=== PATIENT | female | born 1960 | race African-American/Black ===

== ENCOUNTER 2017-05-01 13:20 | Inpatient (IN) | payer MEDICAID, OTHER ==
[~2017-05-01] VITALS: Ht 154.9 cm; Wt 100.7 kg
[2017-05-01] MEDS ORDERED: ONDANSETRON 4 MG/2 ML VIAL IV ONE (14:30)
[2017-05-01] MEDS ORDERED: IV NORMAL SALINE 1000 ML BAG IV ONE ×2 (14:30→15:15)
[2017-05-01 14:48] LABS: BASOPHILS # (AUTO) 0.3 K/uL (0.0-8.0); BASOPHILS % (AUTO) 3.8 % (0.0-2.0); EOSINOPHILS # (AUTO) 0.3 K/uL (0.0-0.7); EOSINOPHILS % (AUTO) 3.6 % (0.0-7.0); HEMATOCRIT 42.8 % (37-47); HEMOGLOBIN 13.6 G/DL (12.0-16.0); LYMPHOCYTES # (AUTO) 1.7 K/UL (0.8-4.8); MEAN CORPUSCULAR HEMOGLOBIN 27.4 UUG (27.0-31.0); MEAN CORPUSCULAR HGB CONC 32 g/dL (32.0-37.0); MEAN CORPUSCULAR VOLUME 85.9 FL (81.0-99.0); MONOCYTES # (AUTO) 0.7 K/UL (0.1-1.30); MONOCYTES % (AUTO) 9.1 % (0.0-11.0); NEUTROPHILS # (AUTO) 4.9 K/UL (1.8-8.9); NEUTROPHILS % (AUTO) 62.5 % (38.5-71.5); PLATELET COUNT (AUTO) 200 K/UL (150-450); RED BLOOD CELL COUNT(AUTO) 4.98 MIL/UL (4.2-5.4); WHITE BLOOD COUNT (AUTO) 7.9 K/UL (4.0-11.2)
[2017-05-01 15:02] LABS: BILIRUBIN,DIRECT 0.1 mg/dL (0.0-0.2); BILIRUBIN,TOTAL 0.6 mg/dL (0.2-1.0); CREATININE 1.1 mg/dL (0.6-1.3); POTASSIUM 4.5 mmol/L (3.5-5.1); TOTAL PROTEIN, SERUM 8.6 g/dL (6.4-8.2)
[2017-05-01] MEDS ORDERED: ONDANSETRON 4 MG/2 ML VIAL ONE (15:12)
[2017-05-01] MEDS ORDERED: INSULIN REGULAR, HUMAN 100 UNIT in IV NORMAL SALINE 99 ML IV PRN ×2 (17:30)
[2017-05-01 18:20] LABS: *BILIRUBIN,URIN NEGATIVE (NEGATIVE); *BLOOD, URINE 3+ (NEGATIVE); *CLARITY,URINE SLIGHTLY CLOUDY (CLEAR); *COLOR,URINE YELLOW (YELLOW); *KETONES,URINE 2+ (NEGATIVE); *PROTEIN,URINE 1+ (NEGATIVE); *UROBILINOGEN,URINE 0.2 E.U./dl (NORMAL); LEUKOCYTE ESTERASE ,URINE TRACE (NEGATIVE); NITRITE, URINE NEGATIVE (NEGATIVE)
[2017-05-01 18:22] LABS: UGLUCOSE 3+ (NEGATIVE)
[2017-05-01 18:26] LABS: BACTERIA,URINE FEW /HPF (NONE SEEN); RBC,URINE 50-80 /HPF (0-3); SQUAMOUS EPITHELIAL CELL,UR FEW /HPF (NONE SEEN)
[2017-05-01] MEDS ORDERED: INSULIN REGULAR, HUMAN 1,000 UNITS/10 ML VIAL IV ONE (18:45)
[2017-05-01] MEDS ORDERED: INSULIN REGULAR, HUMAN 300 UNIT/3 ML VIAL ONE (18:49)
[2017-05-01] MEDS ORDERED: DEXTROSE 50% 50 ML DISP.SYRIN IV PRN (19:30)
[2017-05-01] MEDS ORDERED: ACETAMINOPHEN 325 MG TABLET PO PRN (19:30)
[2017-05-01] MEDS ORDERED: ONDANSETRON 4 MG/2 ML VIAL IV PRN (19:30)
[2017-05-01] MEDS ORDERED: HYDROCODONE/APAP 5-325MG TABLET PO PRN (19:30)
[2017-05-01] MEDS ORDERED: MAGNESIUM HYDROXIDE 30 ML LIQUID UDC PO PRN (19:30)
[2017-05-01] MEDS ORDERED: MORPHINE SULFATE 2 MG/1 ML DISP.SYRIN IV PRN (19:30)
[2017-05-01] MEDS ORDERED: METFORMIN HCL 500 MG TABLET PO SCH (19:30)
[2017-05-01] MEDS: IV 1/2NS 1000 ML 1,000 ML IV PRN (20:11)
[2017-05-01] MEDS: glipiZIDE 5 MG TABLET PO SCH (20:12)
[2017-05-01] MEDS ORDERED: glipiZIDE 5 MG TABLET ONE (20:16)
[2017-05-01] MEDS ORDERED: METFORMIN HCL 500 MG TABLET ONE (20:16)
[2017-05-01] MEDS ORDERED: DOCUSATE SODIUM 100 MG CAPSULE PO ONE (20:17)
[2017-05-01] MEDS ORDERED: ACETAMINOPHEN 325 MG TABLET ONE (20:17)
[2017-05-01 20:18] VITALS: BP 125/77
[2017-05-01] MEDS ORDERED: DOCUSATE SODIUM 250 MG CAPSULE PO SCH (21:00)
[2017-05-01] MEDS: BLOOD SUGAR DIAGNOSTIC 1 EACH STRIP VI SCH (21:03)
[2017-05-01] MEDS: INSULIN REGULAR, HUMAN 300 UNITS/3 ML VIAL SQ PRN (21:10)
[2017-05-02] VITALS: BP 123/73
[2017-05-02 04:00] VITALS: BP 118/67
[2017-05-02] MEDS: INSULIN REGULAR, HUMAN 300 UNIT/3 ML VIAL SQ PRN ×3 (05:45→16:48)
[2017-05-02] MEDS: BLOOD SUGAR DIAGNOSTIC 1 EACH STRIP VI SCH ×4 (06:30→20:58)
[2017-05-02 06:39] LABS: BASOPHILS # (AUTO) 0.1 K/uL (0.0-8.0); BASOPHILS % (AUTO) 1.3 % (0.0-2.0); EOSINOPHILS # (AUTO) 0.4 K/uL (0.0-0.7); EOSINOPHILS % (AUTO) 5.8 % (0.0-7.0); HEMATOCRIT 37.6 % (37-47); HEMOGLOBIN 12.1 G/DL (12.0-16.0); LYMPHOCYTES # (AUTO) 2.3 K/UL (0.8-4.8); LYMPHOCYTES % (AUTO) 32.1 % (20.5-51.5); MEAN CORPUSCULAR HEMOGLOBIN 27.6 UUG (27.0-31.0); MEAN CORPUSCULAR HGB CONC 32 g/dL (32.0-37.0); MEAN CORPUSCULAR VOLUME 85.7 FL (81.0-99.0); MONOCYTES # (AUTO) 0.6 K/UL (0.1-1.30); MONOCYTES % (AUTO) 8.7 % (0.0-11.0); NEUTROPHILS # (AUTO) 3.9 K/UL (1.8-8.9); NEUTROPHILS % (AUTO) 52.1 % (38.5-71.5); PLATELET COUNT (AUTO) 196 K/UL (150-450); RED BLOOD CELL COUNT(AUTO) 4.39 MIL/UL (4.2-5.4); WHITE BLOOD COUNT (AUTO) 7.3 K/UL (4.0-11.2)
[2017-05-02 07:01] LABS: BILIRUBIN,TOTAL 0.3 mg/dL (0.2-1.0); CREATININE 0.7 mg/dL (0.6-1.3); MAGNESIUM 1.9 mg/dL (1.8-2.4); PHOSPHOROUS 3.6 mg/dL (2.5-4.9); POTASSIUM 3.9 mmol/L (3.5-5.1); TOTAL PROTEIN, SERUM 7.1 g/dL (6.4-8.2)
[2017-05-02 08:42] LABS: THYROID STIMULATING HORMONE 1.937 mIU/mL (0.358-3.740)
[2017-05-02] MEDS ORDERED: LISINOPRIL 10 MG TABLET PO SCH (09:00)
[2017-05-02] MEDS: METFORMIN HCL 500 MG TABLET PO SCH ×2 (09:44→18:58)
[2017-05-02] MEDS: PANTOPRAZOLE SODIUM 40 MG TABLET.DR PO SCH (09:44)
[2017-05-02] MEDS: glipiZIDE 5 MG TABLET PO SCH ×2 (09:44→16:41)
[2017-05-02] MEDS: LISINOPRIL 5 MG TABLET PO SCH (09:45)
[2017-05-02] MEDS: IV 1/2NS 1000 ML 1,000 ML IV PRN (10:04)
[2017-05-02] MEDS ORDERED: glipiZIDE 5 MG TABLET PO ONE (11:15)
[2017-05-02 11:42] VITALS: BP 113/76
[2017-05-02 15:58] VITALS: BP 91/52
[2017-05-02 20:19] VITALS: BP 92/57
[2017-05-02] MEDS ORDERED: SIMVASTATIN 10 MG TABLET PO SCH (21:00)
[2017-05-02] MEDS ORDERED: DOCUSATE SODIUM 100 MG CAPSULE PO SCH (21:00)
[2017-05-02] MEDS: INSULIN REGULAR, HUMAN 300 UNITS/3 ML VIAL SQ PRN (23:07)
[2017-05-03 05:02] VITALS: BP 111/66
[2017-05-03] MEDS: IV 1/2NS 1000 ML 1,000 ML IV PRN (05:11)
[2017-05-03] MEDS: PANTOPRAZOLE SODIUM 40 MG TABLET.DR PO SCH (06:52)
[2017-05-03] MEDS: BLOOD SUGAR DIAGNOSTIC 1 EACH STRIP VI SCH ×3 (06:53→16:49)
[2017-05-03] MEDS ORDERED: CEFTRIAXONE 1 G in IV DEXTROSE 5% 50 ML IV SCH (08:15)
[2017-05-03] MEDS: INSULIN REGULAR, HUMAN 300 UNIT/3 ML VIAL SQ PRN ×3 (08:36→16:51)
[2017-05-03] MEDS: glipiZIDE 5 MG TABLET PO SCH ×2 (08:37→16:49)
[2017-05-03] MEDS: METFORMIN HCL 500 MG TABLET PO SCH ×2 (08:37→18:42)
[2017-05-03] MEDS ORDERED: SITAGLIPTIN PHOSPHATE 50 MG TABLET PO SCH (09:00)
[2017-05-03] MEDS: LISINOPRIL 5 MG TABLET PO SCH (09:00)
[2017-05-03] MEDS ORDERED: LINAGLIPTIN 5 MG TABLET PO SCH (09:00)
[2017-05-03] MEDS ORDERED: CEFTRIAXONE 2 G in IV DEXTROSE 5% 100 ML IV SCH (09:45)
[2017-05-03 11:57] VITALS: BP 108/62
[2017-05-03 16:13] VITALS: BP 94/57
== END 2017-05-03 18:52 | disposition home or self-care (01) | DRG 420 ==
LOC: ER 13:23 → TELE 19:51 → MED 05-02 18:00
PROVIDERS: ADMIT Internal Medicine; ATTEND Internal Medicine
DX: E11.65 Type 2 diabetes mellitus with hyperglycemia (principal); D68.59 Other primary thrombophilia; Z68.41 Body mass index [BMI] 40.0-44.9, adult; E66.01 Morbid (severe) obesity due to excess calories; N39.0 Urinary tract infection, site not specified; Z71.3 Dietary counseling and surveillance; Z87.891 Personal history of nicotine dependence; M54.30 Sciatica, unspecified side; G89.29 Other chronic pain; E78.5 Hyperlipidemia, unspecified; Z74.09 Other reduced mobility
CPT/HCPCS: 36415; 71010; 83690; 83735; 84100; 84443; 85025; 93005; A4663; J0696; J1815; J2405; J3490; J7030; J7060

== ENCOUNTER 2017-06-02 12:45 | Emergency (ER) | payer MEDICAID ==
[~2017-06-02] VITALS: Ht 154.9 cm; Wt 74.8 kg
--- NOTE | 2017-06-02 13:47 | NUR ---
Patient discharged to home in stable conditon. Written and verbal after care instructions given. Patient verbalizes understanding of instructions.
== END 2017-06-02 13:48 | disposition home or self-care (01) ==
LOC: ER 12:45
DX: Z76.0 Encounter for issue of repeat prescription (principal); J45.909 Unspecified asthma, uncomplicated; Z86.73 Personal history of transient ischemic attack (TIA), and cerebral infarction without residual deficits; Z88.1 Allergy status to other antibiotic agents; E11.9 Type 2 diabetes mellitus without complications
CPT/HCPCS: 82962; 99282; A4663

== ENCOUNTER 2018-12-18 09:03 | Emergency (ER) | payer OTHER ==
[~2018-12-18] VITALS: Ht 154.9 cm; Wt 72.6 kg
[2018-12-18] MEDS ORDERED: IBUPROFEN 800 MG TABLET PO ONE (09:45)
[2018-12-18] MEDS ORDERED: IBUPROFEN 800 MG TABLET ONE (09:52)
[2018-12-18 10:23] LABS: *BILIRUBIN,URIN NEGATIVE (NEGATIVE); *BLOOD, URINE NEGATIVE (NEGATIVE); *CLARITY,URINE CLEAR (CLEAR); *COLOR,URINE YELLOW (YELLOW); *KETONES,URINE NEGATIVE (NEGATIVE); *UROBILINOGEN,URINE 0.2 E.U./dl (NORMAL); LEUKOCYTE ESTERASE ,URINE NEGATIVE (NEGATIVE); NITRITE, URINE NEGATIVE (NEGATIVE); UGLUCOSE NEGATIVE (NEGATIVE)
[2018-12-18 10:28] LABS: BACTERIA,URINE FEW /HPF (NONE SEEN); RBC,URINE 0-3 /HPF (0-3); SQUAMOUS EPITHELIAL CELL,UR FEW /HPF (NONE SEEN); WBC,URINE 0-3 /HPF (0-3)
[2018-12-18 11:45] LABS: CREATININE 0.7 mg/dL (0.6-1.3); POTASSIUM 3.8 mmol/L (3.5-5.1)
[2018-12-18 11:51] LABS: BILIRUBIN,DIRECT 0.1 mg/dL (0.0-0.2); BILIRUBIN,TOTAL 0.2 mg/dL (0.2-1.0); TOTAL PROTEIN, SERUM 8.3 g/dL (6.4-8.2)
--- NOTE | 2018-12-18 11:56 | NUR ---
[facility] PROVIDED FOR PT PER PT REQUEST AND MD DELGADO.
[2018-12-18 12:19] LABS: BASOPHILS % (AUTO) 0.6 % (0.0-2.0); EOSINOPHILS # (AUTO) 0.4 K/uL (0.0-0.7); EOSINOPHILS % (AUTO) 5.1 % (0.0-7.0); HEMATOCRIT 36.3 % (31.2-41.9); LYMPHOCYTES # (AUTO) 2.1 K/uL (20.0-40.0); LYMPHOCYTES % (AUTO) 29.7 % (20.5-51.5); MEAN CORPUSCULAR HEMOGLOBIN 28.1 uug (24.7-32.8); MEAN CORPUSCULAR HGB CONC 33 g/dL (32.3-35.6); MEAN CORPUSCULAR VOLUME 84.8 fL (75.5-95.3); MONOCYTES # (AUTO) 0.7 K/uL (2.0-10.0); MONOCYTES % (AUTO) 9.5 % (0.0-11.0); NEUTROPHILS # (AUTO) 3.9 K/uL (1.8-8.9); NEUTROPHILS % (AUTO) 55.1 % (38.5-71.5); PLATELET COUNT (AUTO) 192 K/uL (179-408); RED BLOOD CELL COUNT(AUTO) 4.28 MIL/uL (3.63-4.92)
--- NOTE | 2018-12-18 12:38 | NUR ---
Patient discharged to home in stable conditon. Written and verbal after care instructions given. Patient verbalizes understanding of instructions.PT WALKS INSTEADY GAIT. PAIN DOWN TO TOLERABLE LEVEL.
[2018-12-18 12:39] VITALS: BP 109/81
== END 2018-12-18 12:40 | disposition home or self-care (01) ==
LOC: ER 09:03
DX: S70.01XA Contusion of right hip, initial encounter (principal); S20.211A Contusion of right front wall of thorax, initial encounter; S70.11XA Contusion of right thigh, initial encounter; M54.2 Cervicalgia; R10.9 Unspecified abdominal pain; R93.1 Abnormal findings on diagnostic imaging of heart and coronary circulation; J98.11 Atelectasis; K57.30 Diverticulosis of large intestine without perforation or abscess without bleeding; N85.2 Hypertrophy of uterus; J45.909 Unspecified asthma, uncomplicated; E66.9 Obesity, unspecified; Z86.73 Personal history of transient ischemic attack (TIA), and cerebral infarction without residual deficits; Z88.8 Allergy status to other drugs, medicaments and biological substances; V03.90XA Pedestrian on foot injured in collision with car, pick-up truck or van, unspecified whether traffic or nontraffic accident, initial encounter; Y93.01 Activity, walking, marching and hiking; Y92.89 Other specified places as the place of occurrence of the external cause; Y99.8 Other external cause status
CPT/HCPCS: 36415; 70030-TC; 71250; 72125; 85025; 85730; 93005; A4663

== ENCOUNTER 2019-06-05 19:08 | Emergency (ER) | payer OTHER ==
[~2019-06-05] VITALS: Ht 154.9 cm; Wt 72.6 kg
--- NOTE | 2019-06-05 19:20 | NUR ---
Patient ambulated with stable gait. Speech clear, speaks in complete sentences. Patient came for c/o dizziness. Respiratory even and unlabored, no cough no sob. Denies any n/v/d
--- NOTE | 2019-06-05 19:28 | NUR ---
ERMD at bedside for MSE
[2019-06-05] MEDS ORDERED: METF500T7 PO (19:29)
[2019-06-05] MEDS ORDERED: INSU100C SQ (19:29)
[2019-06-05] MEDS ORDERED: SERT25TA PO (19:29)
[2019-06-05] MEDS ORDERED: MECLIZINE HCL 25 MG TABLET ONE (19:45)
[2019-06-05] MEDS ORDERED: MECLIZINE HCL 25 MG TABLET PO ONE (19:45)
[2019-06-05 19:52] LABS: BASOPHILS # (AUTO) 0.1 K/uL (0.0-8.0); BASOPHILS % (AUTO) 1.1 % (0.0-2.0); EOSINOPHILS # (AUTO) 0.3 K/uL (0.0-0.7); EOSINOPHILS % (AUTO) 3.6 % (0.0-7.0); HEMATOCRIT 38.6 % (31.2-41.9); HEMOGLOBIN 12.6 g/dL (10.9-14.3); LYMPHOCYTES % (AUTO) 27.9 % (20.5-51.5); MEAN CORPUSCULAR HEMOGLOBIN 27.9 uug (24.7-32.8); MEAN CORPUSCULAR HGB CONC 33 g/dL (32.3-35.6); MEAN CORPUSCULAR VOLUME 85.3 fL (75.5-95.3); MONOCYTES # (AUTO) 0.5 K/uL (2.0-10.0); MONOCYTES % (AUTO) 7.8 % (0.0-11.0); NEUTROPHILS # (AUTO) 4.2 K/uL (1.8-8.9); NEUTROPHILS % (AUTO) 59.6 % (38.5-71.5); PLATELET COUNT (AUTO) 164 K/uL (179-408); RED BLOOD CELL COUNT(AUTO) 4.53 MIL/uL (3.63-4.92)
[2019-06-05 20:04] LABS: CREATININE 1.2 mg/dL (0.6-1.3); POTASSIUM 4.6 mmol/L (3.5-5.1)
[2019-06-05] MEDS ORDERED: IV NORMAL SALINE 1000 ML BAG IV ONE ×2 (20:30→22:45)
[2019-06-05] MEDS ORDERED: POTASSIUM CHLORIDE 20 MEQ TAB.PRT.SR PO ONE (20:30)
[2019-06-05] MEDS ORDERED: INSULIN REGULAR, HUMAN 300 UNIT/3 ML VIAL IV ONE ×2 (20:30→22:45)
[2019-06-05] MEDS ORDERED: POTASSIUM CHLORIDE 20 MEQ TAB.PRT.SR ONE (20:33)
[2019-06-05] MEDS ORDERED: INSULIN REGULAR, HUMAN 300 UNIT/3 ML VIAL ONE ×2 (20:33→23:01)
--- NOTE | 2019-06-05 21:30 | NUR ---
1st liter NaCL 0.9% IV infusion completed at 2130
--- NOTE | 2019-06-06 00:20 | NUR ---
2nd liter Normal Saline 0.9% infusion completed at 0020
--- NOTE | 2019-06-06 00:57 | NUR ---
Patient discharged to home in stable conditon. Written and verbal after care instructions given. Patient verbalizes understanding of instructions. Patient ambulated with stable gait.
[2019-06-06 01:02] VITALS: BP 132/89
== END 2019-06-06 01:03 | disposition home or self-care (01) ==
LOC: ER 19:09
DX: E10.65 Type 1 diabetes mellitus with hyperglycemia (principal); R42 Dizziness and giddiness; J45.909 Unspecified asthma, uncomplicated; Z88.8 Allergy status to other drugs, medicaments and biological substances; Z86.73 Personal history of transient ischemic attack (TIA), and cerebral infarction without residual deficits; Z79.4 Long term (current) use of insulin; Z79.899 Other long term (current) drug therapy
CPT/HCPCS: 36415; 80048; 82962 ×3; 85025; 93005; 96361 ×2; 96374; 96376; 99284; J1815 ×2; A4663; J7030; J8597

== ENCOUNTER 2019-06-12 17:04 | Emergency (ER) | payer OTHER ==
[~2019-06-12] VITALS: Ht 154.9 cm; Wt 72.6 kg
[~2019-06-12 17:04] MED LIST: INSU100C SQ; METF500T7 PO; SERT25TA PO
--- NOTE | 2019-06-12 17:25 | NUR ---
BRADLEY DAWSON AT BEDSIDE FOR MSE.
[2019-06-12] MEDS ORDERED: IV NORMAL SALINE 1000 ML BAG IV ONE (17:30)
[2019-06-12 17:33] LABS: BASOPHILS % (AUTO) 0.3 % (0.0-2.0); EOSINOPHILS # (AUTO) 0.3 K/uL (0.0-0.7); EOSINOPHILS % (AUTO) 4.7 % (0.0-7.0); HEMATOCRIT 38.6 % (31.2-41.9); HEMOGLOBIN 12.6 g/dL (10.9-14.3); LYMPHOCYTES # (AUTO) 2.2 K/uL (20.0-40.0); LYMPHOCYTES % (AUTO) 30.7 % (20.5-51.5); MEAN CORPUSCULAR HEMOGLOBIN 27.5 uug (24.7-32.8); MEAN CORPUSCULAR HGB CONC 33 g/dL (32.3-35.6); MEAN CORPUSCULAR VOLUME 84.3 fL (75.5-95.3); MONOCYTES # (AUTO) 0.6 K/uL (2.0-10.0); NEUTROPHILS # (AUTO) 4.1 K/uL (1.8-8.9); NEUTROPHILS % (AUTO) 56.3 % (38.5-71.5); PLATELET COUNT (AUTO) 189 K/uL (179-408); RED BLOOD CELL COUNT(AUTO) 4.58 MIL/uL (3.63-4.92); WHITE BLOOD COUNT (AUTO) 7.3 K/uL (3.8-11.8)
[2019-06-12 17:46] LABS: BILIRUBIN,DIRECT 0.1 mg/dL (0.0-0.2); BILIRUBIN,TOTAL 0.4 mg/dL (0.2-1.0); CREATININE 0.9 mg/dL (0.6-1.3)
[2019-06-12 18:15] LABS: *BILIRUBIN,URIN NEGATIVE (NEGATIVE); *BLOOD, URINE NEGATIVE (NEGATIVE); *COLOR,URINE YELLOW (YELLOW); *KETONES,URINE NEGATIVE (NEGATIVE); *UROBILINOGEN,URINE 0.2 E.U./dl (NORMAL); LEUKOCYTE ESTERASE ,URINE NEGATIVE (NEGATIVE); NITRITE, URINE NEGATIVE (NEGATIVE)
[2019-06-12 18:19] LABS: *CLARITY,URINE HAZY (CLEAR); UGLUCOSE 3+ (NEGATIVE)
[2019-06-12 18:25] LABS: BACTERIA,URINE FEW /HPF (NONE SEEN); SQUAMOUS EPITHELIAL CELL,UR MODERATE /HPF (NONE SEEN); WBC,URINE 0-3 /HPF (0-3)
[2019-06-12] MEDS ORDERED: INSULIN REGULAR, HUMAN 300 UNIT/3 ML VIAL ONE (18:42)
[2019-06-12] MEDS ORDERED: ACETAMINOPHEN ES 500 MG TABLET ONE (18:42)
[2019-06-12] MEDS ORDERED: INSULIN REGULAR, HUMAN 300 UNIT/3 ML VIAL SQ ONE (18:45)
[2019-06-12] MEDS ORDERED: ACETAMINOPHEN ES 500 MG TABLET PO ONE (18:45)
--- NOTE | 2019-06-12 19:26 | NUR ---
Patient is refusing to leave the ER at this time. She states " I got blood on my skirt and now I dont feel good". Patient is refusing to follow instruction, she is refusing to leave the ER. Patient was assisted in cleaning her skirt by Troy Craven RN. She was instructed that there is not definitive means of cleaning her skirt in the ER. Her IV site was redressed. Patient spoke to the ER MD, Dr Moore and was instructed that she has been d/c from the ER by Dr Katz. Patient continued to refuse to leave the ER and security was contacted to assist with the situation. Patient became rude and uncooperative. Patient discharged to home in stable conditon. Written and verbal after care instructions given. Patient verbalizes understanding of instructions. Peripheral IV removed prior to d/c. All belongings with patient.
[2019-06-12 19:39] VITALS: BP 111/80
== END 2019-06-12 19:40 | disposition home or self-care (01) ==
LOC: ER 17:04
DX: E11.65 Type 2 diabetes mellitus with hyperglycemia (principal); J45.909 Unspecified asthma, uncomplicated; Z88.8 Allergy status to other drugs, medicaments and biological substances; Z79.4 Long term (current) use of insulin; Z79.899 Other long term (current) drug therapy
CPT/HCPCS: 36415; 80048; 80076; 81000; 81001; 82962; 83690; 85025; 96360; 96361; 96372; 99283; J1815; A4663; A9150; J7030

== ENCOUNTER 2019-06-28 11:21 | Emergency (ER) | payer OTHER ==
[~2019-06-28] VITALS: Ht 154.9 cm; Wt 72.6 kg
--- NOTE | 2019-06-28 11:43 | NUR ---
PATIENT WAS SEEN BY . KEVIN, RX (INCLUDING RECAUTIONS) AND FOLLOW UP INSTRUCTIONS GIVEN AND EXPLAINED TO PATIENT WHO STATES SHE UNDERSTANDS ALL INSTRUCTIONS.
== END 2019-06-28 11:45 | disposition home or self-care (01) ==
LOC: ER 11:21
DX: E11.9 Type 2 diabetes mellitus without complications (principal); J45.909 Unspecified asthma, uncomplicated; Z76.0 Encounter for issue of repeat prescription; Z86.73 Personal history of transient ischemic attack (TIA), and cerebral infarction without residual deficits; Z88.8 Allergy status to other drugs, medicaments and biological substances; Z79.4 Long term (current) use of insulin; Z79.899 Other long term (current) drug therapy
CPT/HCPCS: A4663

== ENCOUNTER 2019-07-18 12:44 | Emergency (ER) | payer OTHER ==
[~2019-07-18] VITALS: Ht 154.9 cm; Wt 72.6 kg
--- NOTE | 2019-07-18 12:50 | NUR ---
PT IS A/OX4, PRESENTS TO THE ER C/O DIZZINESS AND LLE WEAKNESS. 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 PT IS ABLE TO SELF-AMBULATE W/ USE OF CANE. PT IS OF CLEAR SPEECH, NO FACIAL DROOP, NO LIMB DRIFT. VSS. PT DENIES PAIN, C/P, SOB, N/V/D, HEADACHE.
--- NOTE | 2019-07-18 12:51 | NUR ---
BRADLEY DAWSON AT BEDSIDE FOR MSE.
--- NOTE | 2019-07-18 12:54 | NUR ---
CODE STROKE INITIATED.
--- NOTE | 2019-07-18 13:06 | NUR ---
TeleStroke FaceTime machine is at bedside. Patient is in CT scan with ADAM Caicedo @this time.
--- NOTE | 2019-07-18 13:18 | NUR ---
PT BACK IN ER. PT BEING ASSESSED BY TELE-NEUROLOGIST AT THIS TIME.
[2019-07-18 13:19] LABS: BASOPHILS # (AUTO) 0.1 K/uL (0.0-8.0); BASOPHILS % (AUTO) 1.1 % (0.0-2.0); EOSINOPHILS # (AUTO) 0.3 K/uL (0.0-0.7); EOSINOPHILS % (AUTO) 4.4 % (0.0-7.0); HEMATOCRIT 39.6 % (31.2-41.9); HEMOGLOBIN 12.8 g/dL (10.9-14.3); LYMPHOCYTES # (AUTO) 1.9 K/uL (20.0-40.0); LYMPHOCYTES % (AUTO) 29.6 % (20.5-51.5); MEAN CORPUSCULAR HGB CONC 32 g/dL (32.3-35.6); MEAN CORPUSCULAR VOLUME 86.5 fL (75.5-95.3); MONOCYTES # (AUTO) 0.5 K/uL (2.0-10.0); MONOCYTES % (AUTO) 8.3 % (0.0-11.0); NEUTROPHILS # (AUTO) 3.7 K/uL (1.8-8.9); NEUTROPHILS % (AUTO) 56.6 % (38.5-71.5); PLATELET COUNT (AUTO) 180 K/uL (179-408); RED BLOOD CELL COUNT(AUTO) 4.58 MIL/uL (3.63-4.92); WHITE BLOOD COUNT (AUTO) 6.5 K/uL (3.8-11.8)
--- NOTE | 2019-07-18 13:28 | NUR ---
TELE-NEUROLOGIST DR. HODGES.
[2019-07-18 13:33] LABS: CREATININE 0.9 mg/dL (0.6-1.3); POTASSIUM 4.2 mmol/L (3.5-5.1)
--- NOTE | 2019-07-18 13:34 | NUR ---
PT DECLINED TPA ADMINISTRATION AT THIS TIME.
--- NOTE | 2019-07-18 13:39 | NUR ---
ER AT BEDSIDE SPEAKING TO PT RE CTA.
[2019-07-18 13:42] LABS: ABG BASE EXCESS 1.6 mmol/L; ABG HCO3 26.5 mmol/L; ABG PCO2 42.9 mmHg (35.0-45.0); ABG PH 7.409 (7.350-7.450); ABG SITE RIGHT RADIAL; ABG TOTAL HEMOGLOBIN 13.4 G/dL (12.0-16.0); COHb 1.3 % (0.5-1.5); MetHb 0.2 % (0.0-1.5); O2Hb 93.9 % (94.0-97.0); VENT MODE Room Air
[2019-07-18] MEDS ORDERED: IV NORMAL SALINE 250 ML IV ONE (13:42)
[2019-07-18] MEDS ORDERED: SWABABLE VALVE TRANSFER SET EA MC ONE (13:42)
[2019-07-18] MEDS ORDERED: IOHEXOL 350 100 ML INFUS..BTL ONE (13:42)
--- NOTE | 2019-07-18 13:43 | NUR ---
PT DECLINING CTA. ER AWARE.
[2019-07-18] MEDS ORDERED: ASPI81TA44 PO (13:50)
[2019-07-18] MEDS ORDERED: [UNRECOGNIZED DRUG - OTHER] SUBCUT (13:50)
[2019-07-18 14:05] VITALS: BP 125/69
--- NOTE | 2019-07-18 14:11 | NUR ---
Patient does not wish to proceed with medical care recommended by Dr. CAPONE. Patient given information related to possible complications, up to and including , which could occur as a result of leaving the hospital at this time. Patient verbalizes understanding of risks involved due to leaving against medical advice. Patient has signed AMA form.
== END 2019-07-18 14:12 | disposition left against medical advice (07) ==
LOC: ER 12:44
DX: I63.9 Cerebral infarction, unspecified (principal); E11.65 Type 2 diabetes mellitus with hyperglycemia; J45.909 Unspecified asthma, uncomplicated; Z88.8 Allergy status to other drugs, medicaments and biological substances; Z79.82 Long term (current) use of aspirin; Z79.4 Long term (current) use of insulin; Z79.899 Other long term (current) drug therapy
CPT/HCPCS: 36415; 36600; 70450; 71045; 80048; 80061; 82009; 82962; 84484; 85025; 85730; 93005; 99291; Q9967; 70030-TC; A4663; J7050

== ENCOUNTER 2019-11-05 12:45 | Emergency (ER) | payer OTHER ==
[~2019-11-05] VITALS: Ht 154.9 cm; Wt 72.6 kg
[~2019-11-05 12:45] MED LIST changes: +ASPI81TA44 PO; +METF500T20 PO; -METF500T7 PO; +[UNRECOGNIZED DRUG - OTHER] SUBCUT
--- NOTE | 2019-11-05 14:29 | NUR ---
Patient discharged to home in stable conditon. Written and verbal after care instructions given. Patient verbalizes understanding of instructions.PT SAYS FEELS BETTER, READY TO GO HOME.
== END 2019-11-05 14:30 | disposition home or self-care (01) ==
LOC: ER 12:45
DX: R06.00 Dyspnea, unspecified (principal); F41.9 Anxiety disorder, unspecified; J45.909 Unspecified asthma, uncomplicated; E11.9 Type 2 diabetes mellitus without complications; Z88.8 Allergy status to other drugs, medicaments and biological substances; Z79.82 Long term (current) use of aspirin; Z79.4 Long term (current) use of insulin; Z79.899 Other long term (current) drug therapy
CPT/HCPCS: 71045; 93005; A4663

== ENCOUNTER 2020-03-15 17:55 | Emergency (ER) | payer OTHER ==
[~2020-03-15] VITALS: Ht 154.9 cm; Wt 49.9 kg
[~2020-03-15 17:55] MED LIST changes: -SERT25TA PO
--- NOTE | 2020-03-15 19:18 | NUR ---
pt was evaluated by dr alves. pt was d/c'd to home. d/c instructions were given to the pt by dr alves. gait is stable. no s/s of distress at this time. pt denies pain. no n/v, no sob.
[2020-03-15 19:20] VITALS: BP 143/81
== END 2020-03-15 19:20 | disposition home or self-care (01) ==
LOC: ER 18:01
DX: Z76.0 Encounter for issue of repeat prescription (principal); E11.9 Type 2 diabetes mellitus without complications; Z79.4 Long term (current) use of insulin; Z86.73 Personal history of transient ischemic attack (TIA), and cerebral infarction without residual deficits; I10 Essential (primary) hypertension; J45.909 Unspecified asthma, uncomplicated
CPT/HCPCS: A4663

== ENCOUNTER 2020-11-21 14:43 | Emergency (ER) | payer OTHER ==
[~2020-11-21] VITALS: Ht 154.9 cm; Wt 49.9 kg
[~2020-11-21 14:43] MED LIST changes: -ASPI81TA44 PO; +METF-886 PO; -METF500T20 PO; -[UNRECOGNIZED DRUG - OTHER] SUBCUT
--- NOTE | 2020-11-21 15:00 | NUR ---
Pt was triaged and placed back in ER waiting room, there are no ER beds available at this time.
[2020-11-21 15:05] LABS: *BILIRUBIN,URIN NEGATIVE (NEGATIVE); *CLARITY,URINE SLIGHTLY CLOUDY (CLEAR); *COLOR,URINE LIGHT YELLOW (YELLOW); *KETONES,URINE NEGATIVE (NEGATIVE); *UROBILINOGEN,URINE 0.2 E.U./dl (NORMAL); LEUKOCYTE ESTERASE ,URINE NEGATIVE (NEGATIVE); NITRITE, URINE NEGATIVE (NEGATIVE); UGLUCOSE 2+ (NEGATIVE)
[2020-11-21 15:07] LABS: *BLOOD, URINE TRACE (NEGATIVE)
[2020-11-21] MEDS ORDERED: IV NORMAL SALINE 1000 ML BAG IV ONE (15:15)
--- NOTE | 2020-11-21 15:45 | NUR ---
Pt moved to room 1b.
[2020-11-21 15:47] LABS: BASOPHILS # (AUTO) 0.1 K/uL (0.0-8.0); BASOPHILS % (AUTO) 1.1 % (0.0-2.0); EOSINOPHILS # (AUTO) 0.4 K/uL (0.0-0.7); EOSINOPHILS % (AUTO) 5.1 % (0.0-7.0); HEMATOCRIT 39.6 % (31.2-41.9); LYMPHOCYTES # (AUTO) 1.6 K/uL (20.0-40.0); LYMPHOCYTES % (AUTO) 21.3 % (20.5-51.5); MEAN CORPUSCULAR HEMOGLOBIN 27.7 uug (24.7-32.8); MEAN CORPUSCULAR HGB CONC 33 g/dL (32.3-35.6); MEAN CORPUSCULAR VOLUME 84.4 fL (75.5-95.3); MONOCYTES # (AUTO) 0.6 K/uL (2.0-10.0); MONOCYTES % (AUTO) 8.1 % (0.0-11.0); NEUTROPHILS # (AUTO) 4.9 K/uL (1.8-8.9); NEUTROPHILS % (AUTO) 64.4 % (38.5-71.5); PLATELET COUNT (AUTO) 201 K/uL (179-408); RED BLOOD CELL COUNT(AUTO) 4.69 MIL/uL (3.63-4.92); WHITE BLOOD COUNT (AUTO) 7.6 K/uL (3.8-11.8)
--- NOTE | 2020-11-21 15:56 | NUR ---
DR MÉNDEZ EVALUATED THE PT.
[2020-11-21 16:06] LABS: LIPASE 109 U/L (73-393); PHOSPHOROUS 3.6 mg/dL (2.5-4.9)
[2020-11-21 16:21] LABS: BILIRUBIN,DIRECT 0.1 mg/dL (0.0-0.2); BILIRUBIN,TOTAL 0.3 mg/dL (0.2-1.0); CREATININE 0.7 mg/dL (0.6-1.3); TOTAL PROTEIN, SERUM 8.6 g/dL (6.4-8.2)
[2020-11-21 16:41] LABS: THYROID STIMULATING HORMONE 1.366 mIU/mL (0.358-3.740)
--- NOTE | 2020-11-21 16:56 | NUR ---
PT IS IN ROOM #1B. DR MÉNDEZ EVALUATED THE PT.
[2020-11-21] MEDS ORDERED: INSULIN REGULAR, HUMAN 300 UNIT/3 ML VIAL IV ONE (17:30)
[2020-11-21] MEDS ORDERED: INSULIN REGULAR, HUMAN 300 UNIT/3 ML VIAL ONE (18:02)
--- NOTE | 2020-11-21 18:13 | NUR ---
PT WAS D/C'd TO HOME. D/C INSTRUCTIONS GIVEN TO THE PT.
[2020-11-21 18:19] VITALS: BP 136/88
[2020-11-21 18:39] LABS: BACTERIA,URINE FEW /HPF (NONE SEEN); RBC,URINE 0-3 /HPF (0-3)
[2020-11-21 18:40] LABS: SQUAMOUS EPITHELIAL CELL,UR FEW /HPF (NONE SEEN)
== END 2020-11-21 19:14 | disposition home or self-care (01) ==
LOC: ER 14:43
DX: E11.65 Type 2 diabetes mellitus with hyperglycemia (principal); Z79.4 Long term (current) use of insulin; R81 Glycosuria; R53.1 Weakness; Z86.73 Personal history of transient ischemic attack (TIA), and cerebral infarction without residual deficits; I10 Essential (primary) hypertension; Z91.14 Patient's other noncompliance with medication regimen; R53.83 Other fatigue; Z20.822 Contact with and (suspected) exposure to COVID-19; R94.31 Abnormal electrocardiogram [ECG] [EKG]
CPT/HCPCS: 36415; 71046; 80048; 80076; 81001; 82009; 82962; 83690; 83735; 83930; 84100; 84443; 84484; 85025; 85730; 87086; 87426; 93005; 96360; 96361; 96372; 99285; J1815; 70030-TC; A4663; J7030

== ENCOUNTER 2022-07-19 15:21 | Emergency (ER) | payer OTHER ==
[~2022-07-19] VITALS: Ht 154.9 cm; Wt 70.3 kg
[2022-07-19] MEDS ORDERED: ACET-73 PO (16:28)
[2022-07-19] MEDS ORDERED: KETOROLAC TROMETHAMINE 15 MG INJ IM ONE (16:30)
[2022-07-19] MEDS ORDERED: ONDANSETRON ODT 4 MG TAB.RAPDIS SL ONE (16:45)
[2022-07-19] MEDS ORDERED: KETOROLAC TROMETHAMINE 15 MG INJ ONE (16:58)
[2022-07-19] MEDS ORDERED: ONDANSETRON ODT 4 MG TAB.RAPDIS ONE (16:59)
[2022-07-19 18:22] VITALS: BP 156/82
--- NOTE | 2022-07-19 18:22 | NUR ---
Patient discharged to home in stable condition. Written and verbal after care instructions given. Patient verbalizes understanding of instructions. Stressed follow up or return to ER for worsening s/s.
== END 2022-07-19 18:23 | disposition home or self-care (01) ==
LOC: ER 15:21
DX: M25.572 Pain in left ankle and joints of left foot (principal); M25.571 Pain in right ankle and joints of right foot; M54.50 Low back pain, unspecified; M25.552 Pain in left hip; M25.562 Pain in left knee; E11.9 Type 2 diabetes mellitus without complications; Z79.4 Long term (current) use of insulin; Z79.84 Long term (current) use of oral hypoglycemic drugs; E66.9 Obesity, unspecified; Z68.29 Body mass index [BMI] 29.0-29.9, adult; J45.909 Unspecified asthma, uncomplicated; Z86.73 Personal history of transient ischemic attack (TIA), and cerebral infarction without residual deficits; R03.0 Elevated blood-pressure reading, without diagnosis of hypertension
CPT/HCPCS: 99284; 72110; 73502; 73564; 73600 ×2; 96372; J1885; A4663; Q0162

== ENCOUNTER 2024-07-08 15:12 | Emergency (ER) | payer MEDICARE, OTHER ==
[~2024-07-08] VITALS: Ht 154.9 cm; Wt 68.0 kg
[~2024-07-08 15:12] MED LIST changes: +ACET-73 PO
[2024-07-08 16:08] LABS: BASOPHILS # (AUTO) 0.2 K/UL (0.0-0.2); BASOPHILS % (AUTO) 2.5 % (0.0-2.0); EOSINOPHILS # (AUTO) 0.4 K/uL (0.0-0.7); EOSINOPHILS % (AUTO) 5.9 % (0.0-7.0); HEMOGLOBIN 11.3 g/dL (10.9-14.3); LYMPHOCYTES # (AUTO) 1.4 K/uL (0.8-4.8); LYMPHOCYTES % (AUTO) 20.2 % (20.5-51.5); MEAN CORPUSCULAR HEMOGLOBIN 27.3 uug (24.7-32.8); MEAN CORPUSCULAR HGB CONC 32 g/dL (32.3-35.6); MONOCYTES # (AUTO) 0.7 K/uL (0.1-1.30); MONOCYTES % (AUTO) 9.3 % (0.0-11.0); NEUTROPHILS # (AUTO) 4.4 K/uL (1.8-8.9); NEUTROPHILS % (AUTO) 62.1 % (38.5-71.5); PLATELET COUNT (AUTO) 269 K/uL (179-408); RED BLOOD CELL COUNT(AUTO) 4.12 MIL/uL (3.63-4.92); RED CELL DISTRIBUTION WIDTH 14.8 % (12.3-17.7); WHITE BLOOD COUNT (AUTO) 7.1 K/uL (3.8-11.8)
[2024-07-08 16:10] LABS: DIFFERENTIAL COMMENT 1; ERYTHROCYTE SEDIMENTATION RATE 82 MM/HR (0-20)
[2024-07-08 16:14] LABS: CALCIUM 9.4 mg/dL (8.5-10.1); CARBON DIOXIDE 29 mmol/L (21-32); CHLORIDE 103 mmol/L (98-107); CREATININE 0.5 mg/dL (0.6-1.3); GLUCOSE 87 mg/dL (74-106); POTASSIUM 3.2 mmol/L (3.5-5.1); SODIUM SERUM 141 mmol/L (136-145); UREA NITROGEN, BLOOD 5 mg/dL (7-18)
[2024-07-08 16:20] LABS: ALANINE AMINOTRANSFERASE 34 U/L (14-59); ALBUMIN 3.4 g/dL (3.4-5.0); ALKALINE PHOSPHATASE 156 U/L (50-136); ASPARTATE AMINOTRANSFERASE 34 U/L (15-37); BILIRUBIN,TOTAL 0.6 mg/dL (0.2-1.0); C-REACTIVE PROTEIN 0.24 mg/dL (0.00-0.30); TOTAL PROTEIN, SERUM 7.3 g/dL (6.4-8.2)
[2024-07-08 16:28] LABS: THYROID STIMULATING HORMONE 1.582 mIU/mL (0.358-3.740)
[2024-07-08 16:37] LABS: ABG BASE EXCESS 3.5 mmol/L (-2.0-3.0); ABG HCO3 27.9 mmol/L (21.0-28.0); ABG PCO2 41.3 mmHg (32.0-45.0); ABG PH 7.447 (7.350-7.450); ABG PO2 73.1 mmHg (83.0-108.0); ABG SITE RIGHT RADIAL; ABG TOTAL HEMOGLOBIN 12.5 G/dL (12.0-16.0); AaDO2 95.3 mmHg; O2Hb 94.6 % (94.0-98.0)
[2024-07-08] MEDS: IV NORMAL SALINE 1000 ML BAG IV ONE (16:59)
[2024-07-08] MEDS ORDERED: HYDR-3980 PO (17:00)
[2024-07-08] MEDS ORDERED: POTASSIUM BICARBONATE/CIT AC 25 MEQ TABLET.EFF ONE (17:00)
[2024-07-08] MEDS ORDERED: POTA25TA7 PO (17:01)
[2024-07-08] MEDS: POTASSIUM BICARBONATE/CIT AC 25 MEQ TABLET.EFF PO ONE (17:04)
[2024-07-08] MEDS ORDERED: KETOROLAC TROMETHAMINE 30 MG INJ ONE (17:09)
[2024-07-08] MEDS: KETOROLAC TROMETHAMINE 30 MG INJ IVP ONE (17:17)
[2024-07-08 17:39] VITALS: BP 135/86; TEMP 97.9; O2SAT 97
== END 2024-07-08 18:07 | disposition home or self-care (01) ==
LOC: ER 15:13
DX: R53.1 Weakness (principal); M25.562 Pain in left knee; M25.561 Pain in right knee; E87.6 Hypokalemia; E66.9 Obesity, unspecified; Z86.73 Personal history of transient ischemic attack (TIA), and cerebral infarction without residual deficits; J45.909 Unspecified asthma, uncomplicated; E11.9 Type 2 diabetes mellitus without complications; Z98.890 Other specified postprocedural states; Z79.4 Long term (current) use of insulin; Z79.1 Long term (current) use of non-steroidal anti-inflammatories (NSAID); Z68.28 Body mass index [BMI] 28.0-28.9, adult; Z79.891 Long term (current) use of opiate analgesic; Z79.899 Other long term (current) drug therapy; Z60.2 Problems related to living alone; Z88.1 Allergy status to other antibiotic agents
CPT/HCPCS: 99285; 96374; 71045; 80053; 83880; 84443; 85025; 84145; 85651; 85730; 86140; 87040 ×2; 84484; 36415; 93005; 83605; 36600 ×2; J1885; A4606; A4663